=== PATIENT | male | born 1995 | race Caucasian/White ===

== ENCOUNTER 2020-05-18 13:54 | Emergency (ER) | payer OTHER ==
[~2020-05-18 13:54] MED LIST: BENTYL 20MG TAB20 MG PO; IBUPROFEN600 MG PO; ZOFRAN ODT 4 MG4 MG SL
[2020-05-18 15:21] LABS: RED BLOOD COUNT 5.38 M/UL (4.20-5.50); WHITE BLOOD COUNT 7.8 K/UL (4.5-11.0)
[2020-05-18 15:37] LABS: BUN/CREATININE RATIO 17 (0-10)
[2020-05-18] MEDS ORDERED: ZOFRAN4 MG PO (18:20)
== END 2020-05-18 19:00 | disposition home or self-care (01) ==
LOC: ER1 13:54
PROVIDERS: Family Medicine
DX: A08.4 Viral intestinal infection, unspecified (principal); Z20.828 Contact with and (suspected) exposure to other viral communicable diseases
CPT/HCPCS: 80053; 81001; 82150; 83690; 85025; 85652; 86140; 87635; 96374; 96375; 99284; J1885; Q9967

== ENCOUNTER 2020-12-11 17:27 | Emergency (ER) | payer OTHER ==
[~2020-12-11 17:27] MED LIST changes: +ZOFRAN4 MG PO
[2020-12-11 19:11] LABS: HEMOGLOBIN 15.3 gm/dl (14.0-17.5); RED BLOOD COUNT 5.28 M/UL (4.20-5.50); WHITE BLOOD COUNT 8.1 K/UL (4.5-11.0)
[2020-12-11 19:42] LABS: BUN/CREATININE RATIO 13 (0-10)
[2020-12-11] MEDS ORDERED: PROTONIX40 MG PO (22:26)
[2020-12-11] MEDS ORDERED: ZOFRAN ODT 4 MG4 MG SL (22:26)
== END 2020-12-11 22:50 | disposition home or self-care (01) ==
LOC: ER1 17:27
PROVIDERS: Physician Assistant
DX: K21.9 Gastro-esophageal reflux disease without esophagitis (principal); R07.9 Chest pain, unspecified; Z20.822 Contact with and (suspected) exposure to COVID-19
CPT/HCPCS: 0240U; 71045; 80053; 82150; 82550; 82553; 83690; 83874; 84484; 85025; 93005; 99285